=== PATIENT | female | born 1950 | race Two or more races ===

== ENCOUNTER → 2021-10-22 08:00 | Outpatient (CLI) | payer OTHER ==
[~2021-10-22] VITALS: Ht 157.5 cm; Wt 59.9 kg
[~2021-10-22 08:00] MED LIST: CRESTOR10 MG PO; SYNTHROID50 MCG PO
== END | disposition home or self-care (01) ==
LOC: LAB 08:00 → SURH 10-26 07:00 → EDSTATUS 10-26 12:15 → SURH 10-26 12:15
PROVIDERS: ATTEND Surgery
DX: C20 Malignant neoplasm of rectum (principal); R19.4 Change in bowel habit; R19.5 Other fecal abnormalities; R59.0 Localized enlarged lymph nodes; R97.0 Elevated carcinoembryonic antigen [CEA]

== ENCOUNTER 2022-04-01 08:49 | Outpatient (CLI) | payer OTHER ==
[~2022-04-01 08:49] MED LIST changes: +FAMOTIDINE20 MG; +IBANDRONATE SO150 MG; +MECLIZINE HCL25 MG; +MONTELUKAST SOD10 MG; +OMEPRAZOLE20 MG; +VITAMIN D PO; +VITAMIN D3125 MC1; +ZOLPIDEM TARTRA10 MG
== END 2022-04-01 08:56 | disposition home or self-care (01) ==
LOC: RX STUDY 08:49
PROVIDERS: ATTEND Surgery
DX: R19.4 Change in bowel habit (principal); R19.5 Other fecal abnormalities; R59.0 Localized enlarged lymph nodes; R97.0 Elevated carcinoembryonic antigen [CEA]

== ENCOUNTER 2022-06-23 11:30 | Inpatient (IN) | payer OTHER ==
[~2022-06-23] VITALS: Ht 160 cm; Wt 63.5 kg
[2022-06-24] MEDS ORDERED: PROTONIX40 MG PO (08:28)
[2022-06-24] MEDS ORDERED: PEPCID40 MG PO (08:28)
[2022-06-28] MEDS ORDERED: MONTELUKAST SOD10 MG (14:22)
[2022-06-28] MEDS ORDERED: ZOLPIDEM TARTRA10 MG (14:22)
[2022-06-28] MEDS ORDERED: ROSUVASTATIN CA10 MG (14:23)
[2022-07-01] MEDS ORDERED: PEPCID AC20 MG PO (12:01)
[2022-07-01] MEDS ORDERED: HYOSCYAMINE0.125 M1 SL (12:01)
[2022-07-01] MEDS ORDERED: TRAM1TAB98 PO (12:01)
== END 2022-07-01 20:44 | disposition home or self-care (01) | DRG 349 ==
LOC: O/R 06-28 05:30 → SURG 06-28 08:30 → SURH 06-28 10:28 → SURG 06-28 11:30 → SURH 07-01 20:44
PROVIDERS: ADMIT Surgery; ATTEND Surgery
PROC: 3E0F7SF Introduction of Other Gas into Respiratory Tract, Via Natural or Artificial Opening (ICD-10-PCS; 2022-06-28)
PROC: 0DBB4ZZ Excision of Ileum, Percutaneous Endoscopic Approach (ICD-10-PCS; principal; 2022-06-28 08:30)
DX: C20 Malignant neoplasm of rectum (principal); R19.4 Change in bowel habit; R19.5 Other fecal abnormalities; R97.0 Elevated carcinoembryonic antigen [CEA]; K66.0 Peritoneal adhesions (postprocedural) (postinfection); E03.9 Hypothyroidism, unspecified; I10 Essential (primary) hypertension; R33.9 Retention of urine, unspecified